=== PATIENT | male | born 1970 | race Caucasian/White ===

== ENCOUNTER → 2023-03-12 | Outpatient (CLI) | payer MEDICARE, MEDICAID | LOC: M RAD 13:26 | PROVIDERS: ATTEND Surgery | DX: I70.203 Unspecified atherosclerosis of native arteries of extremities, bilateral legs (principal); L97.822 Non-pressure chronic ulcer of other part of left lower leg with fat layer exposed; L97.812 Non-pressure chronic ulcer of other part of right lower leg with fat layer exposed ==

== ENCOUNTER 2023-04-09 09:15 | Day surgery (SDC) | payer MEDICARE, MEDICAID ==
[~2023-04-09] VITALS: Ht 188 cm; Wt 173.9 kg
[~2023-04-09 09:15] MED LIST: ALBU8.5H; BREO1INH; FAMO20TA5 PO; FARX1TAB3 PO; GABA-282 PO; GLIP10TA18 PO; ISOS1TAB35 PO; LISI20TA33 PO; MONT10TA97 PO; PANT40TA29 PO; POTA1TAB23 PO; ROSU20TA61 PO; SPIR50TA4 PO; ceFAZolin SOD 1 GM in D5W MINI-BAG PLUS 50 ML IV ONE; ceFAZolin SOD 2 GM in IV 1 EA IV ONE
[2023-04-09] MEDS ORDERED: LR 1,000 ML IV SCH ×2 (09:40→12:40)
[2023-04-09] MEDS ORDERED: propofoL 200 MG/20 ML VIAL As Ordered ONE ×2 (09:48→09:49)
[2023-04-09] MEDS ORDERED: LIDOCAINE 2% 100MG/5ML SDV (FOR ANES.) As Ordered ONE (09:48)
[2023-04-09] MEDS ORDERED: ONDANSETRON 4MG 2ML VIAL As Ordered ONE (09:50)
[2023-04-09] MEDS ORDERED: fentaNYL 100 MCG/2 ML INJECTION As Ordered ONE (09:52)
[2023-04-09] MEDS ORDERED: MIDAZOLAM INJ 2MG/2ML VIAL As Ordered ONE (09:53)
[2023-04-09] MEDS ORDERED: ROCURONIUM BROMIDE 50MG/5ML VIAL As Ordered ONE (10:46)
[2023-04-09] MEDS ORDERED: SUGAMMADEX SODIUM 500 MG/5 ML VIAL (BRIDION) As Ordered ONE (10:46)
[2023-04-09] MEDS ORDERED: SUCCINYLCHOLINE 100MG/5ML SYRINGE As Ordered ONE (10:58)
[2023-04-09] MEDS ORDERED: GENTAMICIN SULF 80MG/2ML VIAL As Ordered ONE (11:06)
[2023-04-09] MEDS ORDERED: CIPROFLOXACIN/D5W 400 MG/200 ML BAG As Ordered ONE ×2 (11:15→11:32)
[2023-04-09] MEDS ORDERED: HEPARIN SOD (PORCINE) 5000UNITS/ML 1ML VIAL/SYRINGE SQ ONE (12:00)
[2023-04-09] MEDS ORDERED: ACETAMINOPHEN 1000MG 100ML IV BAG As Ordered ONE (12:02)
[2023-04-09] MEDS ORDERED: oxyCODONE 5MG TAB PO PRN (12:40)
[2023-04-09] MEDS ORDERED: HYDROMORPHONE HCL 0.5 MG/ 0.5 ML SYRINGE IV PRN (12:40)
[2023-04-09] MEDS ORDERED: ONDANSETRON 4MG 2ML VIAL IV PRN (12:40)
[2023-04-09] MEDS ORDERED: fentaNYL 100 MCG/2 ML INJECTION IV PRN (12:40)
[2023-04-09 14:00] VITALS: BP 148/82; TEMP 97; O2SAT 97
== END 2023-04-09 14:09 | disposition home or self-care (01) ==
LOC: M SDC 09:15
PROVIDERS: ATTEND Plastic Surgery Surgery of the Hand
DX: I87.2 Venous insufficiency (chronic) (peripheral) (principal); L85.3 Xerosis cutis; R60.0 Localized edema; E66.01 Morbid (severe) obesity due to excess calories; I10 Essential (primary) hypertension; E11.9 Type 2 diabetes mellitus without complications; Z79.82 Long term (current) use of aspirin; Z79.899 Other long term (current) drug therapy
CPT/HCPCS: 11042; 11045; 87070; 87077; 87205; J0131; J0330; J0690; J0744; J1100; J2250; J2405; J3010